=== PATIENT | male | born 1950 | race Caucasian/White ===

== ENCOUNTER 2020-02-08 18:34 | Emergency (ER) | payer MEDICARE, OTHER ==
[2020-02-08] MEDS ORDERED: Metoclopramide 5 MG Tab PO ONE (20:01)
--- NOTE | 2020-02-08 20:01 | EDM.PDOC ---
ED HPI GENERAL MEDICAL PROBLEM - General Chief Complaint: Respiratory Problem Stated Complaint: HICCUPS Time Seen by Provider: 02/08/20 19:47 - History of Present Illness INITIAL COMMENTS - FREE TEXT/NARRATIVE: 69-year-old male presents the emergency room with hiccups. This is been going on for 6 days now. He has had a few brief remissions but they start up again. The patient was seen in the walk-in clinic today and they have started him on omeprazole 20 mg daily. However the patient is still having hiccups albeit not at this time. Today he started the omeprazole and actually took 2 doses. The patient has some intermittent reflux-like symptoms so the omeprazole was probably a really good choice. And often can be used with hiccups as first-line therapy because of the possibility of stomach trouble and reflux causing phrenic and and vagal irritation. Patient denies any significant medication changes other than the omeprazole. He has not had significant abdominal pain or shortness of breath. Has some concerns of ventral hernia this seems to be getting more problematic with pickups. - Related Data Allergies Allergy/AdvReac Type Severity Reaction Status Date / Time No Known Allergies Allergy Verified 02/08/20 18:49 Home Meds: Home Meds Baclofen 10 mg PO Q8H PRN #12 tablet 02/08/20 [Rx] Past Medical History Genitourinary History: Reports: Renal Calculus Social & Family History - Tobacco Use Smoking Status *Q: Never Smoker Second Hand Smoke Exposure: No - Caffeine Use Caffeine Use: Reports: Coffee - Recreational Drug Use Recreational Drug Use: Yes Recreational Drug Type: Reports: Marijuana/Hashish ED ROS GENERAL - Review of Systems Review Of Systems: See Below Constitutional: Reports: No Symptoms HEENT: Reports: No Symptoms, Vertigo Cardiovascular: Reports: No Symptoms GI/Abdominal: Reports: Other (Hips as stated above). Denies: Abdominal Pain, Anorexia, Black Stool, Bloody Stool, Constipation, Nausea : Reports: No Symptoms Musculoskeletal: Reports: No Symptoms Neurological: Reports: No Symptoms ED EXAM, GENERAL - Physical Exam Exam: See Below Exam Limited By: No Limitations General Appearance: Alert, No Apparent Distress, Other (He does not have active hiccups at this time) Ears: Normal External Exam, Normal Canal, Hearing Grossly Normal, Normal TMs Nose: Normal Inspection, Normal Mucosa, No Blood Throat/Mouth: Normal Inspection, Normal Lips, Normal Teeth, Normal Gums, Normal Oropharynx, Normal Voice, No Airway Compromise Head: Atraumatic, Normocephalic Neck: Normal Inspection, Supple, Non-Tender, Full Range of Motion Respiratory/Chest: No Respiratory Distress, Lungs Clear, Normal Breath Sounds Cardiovascular: Regular Rate, Rhythm, No Edema, No Murmur GI/Abdominal: Normal Bowel Sounds, Soft, Non-Tender, Other (Developing a ventral abdominal wall defect between the xiphoid and the umbilicus with palpation there is certainly some laxity in the tissue.) Back Exam: Normal Inspection. No: CVA Tenderness (L), CVA Tenderness (R) Extremities: Normal Inspection, No Pedal Edema Course - Vital Signs Last Recorded V/S: Last Vital Signs Temp 36.3 C 02/08/20 18:46 Pulse 76 02/08/20 18:46 Resp 20 02/08/20 18:46 BP 139/90 02/08/20 18:46 Pulse Ox 98 02/08/20 18:46 - Orders/Labs/Meds Meds: Medications Discontinued Medications Generic Name Dose Route Start Last Admin Trade Name David PRN Reason Stop Dose Admin Metoclopramide HCl 5 mg 02/08/20 20:01 02/08/20 20:10 Reglan PO 02/08/20 20:02 5 mg ONETIME ONE Administration - Re-Assessments/Exams Free Text/Narrative Re-Assessment/Exam: 02/08/20 21:05 Agree with starting the omeprazole. However it takes some time to work I have recommended the patient start Pepcid 20 mg twice a day for a week to see if help this help speed things up. Did give the patient some Reglan 5 mg 1 time here in the may have helped but the hiccups kind of come and go still we will discharge him with a prescription for baclofen 10 mg 3 times a day for a few days and see if this helps as well Departure - Departure Time of Disposition: 21:07 Disposition: Home, Self-Care 01 Clinical Impression: Hiccups - Discharge Information Referrals: Jose Angel Magdaleno MD [Primary Care Provider] - Forms: ED Department Discharge Additional Instructions: Return to the emergency room with any questions problems or worsening symptoms. Continue taking the omeprazole. It works best if you take it 30 to 60 minutes before your morning meal. The omeprazole may take up to 5 to 6 days to get fully active. While you are waiting for this use Pepcid, or famotidine is the generic name 20 mg twice daily. You have been started on baclofen, this is a muscle relaxant, take 1 every 8 hours as needed however it can cause some sedation so allow 12 hours after using it before driving or returning to work. Sepsis Event Note (ED) - Evaluation Sepsis Screening Result: No Definite Risk - Focused Exam Vital Signs: Vital Signs Temp Pulse Resp BP Pulse Ox 02/08/20 18:46 36.3 C 76 20 139/90 98
== END 2020-02-08 21:18 | disposition home or self-care (01) ==
LOC: JD.ED 18:34
DX: R06.6 Hiccough (principal)
CPT/HCPCS: 99283; A9270